=== PATIENT | female | born 1940 | race Asian ===

== ENCOUNTER 2017-01-27 09:41 | Emergency (ER) | payer MEDICARE, BC ==
[~2017-01-27] VITALS: Ht 149.9 cm; Wt 62.7 kg
[~2017-01-27 09:41] MED LIST: AMOXICILLIN 8751 TAB PO; CEPHALEXIN500 M1 PO; NO HOME MEDICATIONS; PREDNISONE20 M1 PO
[2017-01-27 09:45] VITALS: TEMP 98.2
[2017-01-27 10:08] LABS: COLLECTION METHOD CLEAN CATCH
[2017-01-27] MEDS ORDERED: JANUMET 500 MG-1 TA1 PO (10:12)
[2017-01-27] MEDS ORDERED: HYGROTON 2525 MG/TAB (10:13)
[2017-01-27 10:19] LABS: MUCOUS Present /lpf; PH 8 (5-8); SQUAMOUS EPITHELIAL None Seen /hpf; URINE APPEARANCE Hazy; URINE BACTERIA None Seen /hpf; URINE BILIRUBIN Negative (NEGATIVE); URINE BLOOD 3+ (NEGATIVE); URINE COLOR Yellow; URINE GLUCOSE Negative (NEGATIVE); URINE KETONE Negative (NEGATIVE); URINE LEUKOCYTE ESTERASE 3+ (NEGATIVE); URINE PROTEIN(semi-quant) 1+ (NEGATIVE); URINE RBC >50 /hpf; URINE UROBILINOGEN Negative (NEGATIVE)
[2017-01-27 10:20] LABS: URINE WBC 20-50 /hpf
[2017-01-27] MEDS ORDERED: ASPIRIN E.C. 8181 MG PO (10:33)
[2017-01-27] MEDS ORDERED: ZOCOR 20MG20 MG PO (10:34)
[2017-01-27] MEDS ORDERED: GLUCOTROL 5M5 MG/TAB PO (10:34)
[2017-01-27] MEDS ORDERED: PYRIDIUM200 M1 PO (10:40)
[2017-01-27] MEDS ORDERED: CEPHALEXIN500 M1 PO (10:40)
[2017-01-27 10:57] VITALS: BP 184/85; PULSE 77
== END 2017-01-27 10:55 | disposition home or self-care (01) ==
LOC: COL.ER 09:41
PROVIDERS: Physician Assistant
DX: N39.0 Urinary tract infection, site not specified (principal); I10 Essential (primary) hypertension; E11.9 Type 2 diabetes mellitus without complications; E78.5 Hyperlipidemia, unspecified; Z90.710 Acquired absence of both cervix and uterus; Z79.84 Long term (current) use of oral hypoglycemic drugs; Z79.82 Long term (current) use of aspirin

== ENCOUNTER 2019-04-08 21:39 | Emergency (ER) | payer MEDICARE, BC ==
[~2019-04-08] VITALS: Ht 149.9 cm; Wt 62.3 kg
[~2019-04-08 21:39] MED LIST changes: +ASPIRIN E.C. 8181 MG PO; +GLUCOTROL 5M5 MG/TAB PO; +HYGROTON 2525 MG/TAB; +JANUMET 500 MG-1 TA1 PO; +PYRIDIUM200 M1 PO; +ZOCOR 20MG20 MG PO
[2019-04-08 21:46] VITALS: BP 182/86; TEMP 98.4
[2019-04-08] MEDS ORDERED: FARXIGA5 PO (22:37)
[2019-04-08 22:43] LABS: COLLECTION METHOD CLEAN CATCH
[2019-04-08 22:48] LABS: PH 6 (5-8); SQUAMOUS EPITHELIAL None Seen /hpf; URINE APPEARANCE Clear; URINE BACTERIA None Seen /hpf; URINE BILIRUBIN Negative (NEGATIVE); URINE BLOOD 1+ (NEGATIVE); URINE COLOR Colorless; URINE GLUCOSE 3+ (NEGATIVE); URINE KETONE Trace (NEGATIVE); URINE LEUKOCYTE ESTERASE Negative (NEGATIVE); URINE NITRATE Negative (NEGATIVE); URINE PROTEIN(semi-quant) Negative (NEGATIVE); URINE RBC 0-2 /hpf; URINE UROBILINOGEN Negative (NEGATIVE)
[2019-04-08 23:09] LABS: BASO % 0.1 % (0.0-2.0); GRAN # 5.9 (1.4-6.5); GRAN % 81.1 % (42.2-75.2); HEMATOCRIT 41.2 % (37.0-47.0); HEMOGLOBIN 13.7 g/dl (12.5-16.0); LYMPH # 1.1 (1.2-3.4); LYMPH % 15.2 % (20.0-51.0); MEAN CELL VOLUME 92 fl (80.0-100.0); MEAN CORPUSCULAR HEMOGLOBIN 31 pg (27.0-31.0); MEAN CORPUSCULAR HGB CONC 33 g/dl (33.0-37.0); MEAN PLATELET VOLUME 9.8 fl (7.4-10.4); MONO # 0.2 (0.1-0.6); MONO % 2.8 % (1.7-9.3); PLATELET COUNT 217 K/mm3 (130-400); RED BLOOD COUNT 4.47 M/mm3 (4.10-5.30); REDCELL DISTRIBUTION WIDTH-CV 12.9 % (11.5-14.5)
[2019-04-08 23:29] LABS: ALBUMIN 4.2 gm/dL (3.5-5.0); BILIRUBIN,TOTAL 0.3 mg/dL (0.0-1.0); CREATININE, serum 0.7 (0.52-1.25); POTASSIUM 3.9 mmol/L (3.4-5.0)
[2019-04-09 01:25] VITALS: PULSE 77
== END 2019-04-09 01:25 | disposition home or self-care (01) ==
LOC: COL.ER 21:39
PROVIDERS: Emergency Medicine
DX: E11.65 Type 2 diabetes mellitus with hyperglycemia (principal); Z79.82 Long term (current) use of aspirin; Z79.4 Long term (current) use of insulin
CPT/HCPCS: J1815; J2405; J7030

== ENCOUNTER → 2019-11-17 | Outpatient (CLI) | payer MEDICARE, BC ==
[~2019-11-17] MED LIST changes: +FARXIGA5 PO
== END ==
LOC: COL.RAD
DX: C88.4 Extranodal marginal zone B-cell lymphoma of mucosa-associated lymphoid tissue [MALT-lymphoma] (principal)
CPT/HCPCS: Q9967

== ENCOUNTER → 2020-02-16 | Outpatient (CLI) | payer MEDICARE, BC | LOC: COL.RAD 09:47 | DX: C88.4 Extranodal marginal zone B-cell lymphoma of mucosa-associated lymphoid tissue [MALT-lymphoma] (principal); Z90.710 Acquired absence of both cervix and uterus | CPT/HCPCS: Q9967 ==

== ENCOUNTER 2021-09-23 00:24 | Emergency (ER) | payer MEDICARE, BC ==
[~2021-09-23] VITALS: Ht 149.9 cm; Wt 59.1 kg
[2021-09-23 01:08] LABS: COLLECTION METHOD CLEAN CATCH
[2021-09-23 01:16] LABS: PH 8 (5-8); SQUAMOUS EPITHELIAL 0-2 /hpf (0-10); URINE APPEARANCE Hazy (CLEAR/HAZY); URINE BACTERIA None Seen /hpf (NONE SEEN); URINE BLOOD 3+ (NEGATIVE); URINE CALCIUM OXALATE CRYSTAL Present (NOT PRESENT); URINE COLOR Yellow (YELLOW); URINE GLUCOSE 2+ (NEGATIVE); URINE KETONE Negative (NEGATIVE); URINE NITRATE Negative (NEGATIVE); URINE PROTEIN(semi-quant) Negative (NEGATIVE); URINE RBC >50 /hpf (0-2); URINE UROBILINOGEN Negative (NEGATIVE)
[2021-09-23] MEDS ORDERED: CEPHALEXIN500 M1 PO (01:49)
[2021-09-23 01:58] VITALS: BP 150/91; PULSE 87; TEMP 98
== END 2021-09-23 01:58 | disposition home or self-care (01) ==
LOC: COL.ER 00:24
PROVIDERS: Nurse Practitioner
DX: N39.0 Urinary tract infection, site not specified (principal)